=== PATIENT | female | born 1945 | race Caucasian/White ===

== ENCOUNTER 2024-01-25 09:49 | Outpatient (RCR) | payer MEDICARE, BC, SELFPAY | END 2024-07-23 23:59 | disposition home or self-care (01) | LOC: CCIC 09:49 | PROVIDERS: PCP Nurse Practitioner Family; Visit Provider Nurse Practitioner Family | DX: C77.2 Secondary and unspecified malignant neoplasm of intra-abdominal lymph nodes (principal) | CPT/HCPCS: 99211 ==